=== PATIENT | female | born 1970 | race Caucasian/White ===

== ENCOUNTER → 2024-01-20 00:19 | Outpatient (CLI) | payer BC, SELFPAY ==
--- NOTE | 2024-01-20 | ETT_ITS ---
APPROVED REPORT Exam: Exercise Treadmill Patient Location: Out-Patient Room/Bed: Stress Nurse: Lizz Littlejohn RN Ordering Provider:Yanet Pearce Contact Number: [phone] BMI: 29.44 Baseline Rhythm: Sinus Rhythm Indications: Chest pain Medical History Medical History: HTN, HLD, hypothyroid, mild intermittent asthma, panic disorder with agoraphobia, PT SD, tobacco abuse, heart murmur, aortic stenosis Cardiac Medications: Lisinopril, aspirin, levothyroxine, rosuvastatin Allergies: Ciprofloxacin, dextromethorphan, sulfamethaoxazole Cardiac Risk Factors: Family hx, HTN, HLD, CVD, asthma, smoker Previous Cardiac Procedures: None Pretest Chest Pain Characteristics: None Exercise History: Physically active Physical Disabilities: None Lung Sounds: Clear to auscultation Heart Sounds: Regular Stress Test Details Test: Exercise stress testing was performed using a Benjamin protocol. Rest Stress HR Resting HR Supine: 62 bpm Max Heart Rate (APMHR): 165 bpm Resting HR Standin bpm Target HR (85% APMHR): 140 bpm Max HR Achieved: 118 bpm % of APMHR: 72 Recovery HR: 65 bpm HR response to stress: Blunted HR response to stress BP Resting BP Supine: 118/80 mmHg Resting BP Standin/70 mmHg Max BP: 164/82 mmHg Recovery BP: 102/70 mmHg BP response to stress: Normal blood pressure response to stress. ECG Resting ECG: Sinus Rhythm Ectopy: None Stress ECG: Sinus Tachycardia ST Change: Nondiagnostic low heart rate, Horizontal ST depression, Downsloping ST depression, Upslopi ng ST depression Lead(s): inferior leads, V6 Stage: [address] Deviation: 1-2 mm Arrhythmia: Occasional PAC's Recovery ECG: Sinus Rhythm Recovery ST Change: Nondiagnostic low heart rate, Horizontal ST depression, Downsloping ST depressio n, Upsloping ST depression Lead(s): Inferior Recovery Arrhythmia: Occasional PAC's Clinical Reason for Termination: Fatigue, Leg pain/Claudication, MOD SOB Stress Symptoms: General Fatigue, Leg Fatigue, mod SOB Exercise duration: 08 min39 sec Highest Stage Reached: Stage 3: 3.4 mph at 14% grade. Exercise capacity: 10.16 METs Angina Score: None Grover Treadmill Score: 5.0 Rate Pressure Product: [id number] Stress ECG Conclusion 1. Resting electrocardiogram was normal 2. Patient exercised on the Benjamin protocol, good exercise capacity of 10.16 METS 3. Normal blood pressure response to exercise. Peak heart rate achieved was 72% of maximal predicted for age 4. Electrocardiographic portion of the test was nondiagnostic due to inadequate heart rate 5. There were no significant dysrhythmias Grover Treadmill Score is 5.0 which is Low risk.
== END ==
PROVIDERS: PCP Family Medicine; Visit Provider Family Medicine
DX: I10 Essential (primary) hypertension (principal)
CPT/HCPCS: 93017

== ENCOUNTER 2024-02-06 10:00 | Outpatient (CLI) | payer BC, SELFPAY ==
--- NOTE | 2024-02-06 10:00 | RT.EKG_ITS ---
APPROVED REPORT Exam: Resting ECG Reason for Exam: chest pain Patient Location: O HR:63 bpm ECG Measurements Heart Rate 63 AXIS WI 145 P 45 QRSd 94 QRS 15 QT 403 T 17 QTc 413 Conclusion Sinus rhythm...normal P axis, V-rate 50- 99 Left atrial enlargement...P, P'>60mS, <-0.15mV V1
== END 2024-02-06 10:01 | disposition home or self-care (01) ==
LOC: DI.CARD 10:00
PROVIDERS: PCP Family Medicine; Visit Provider Internal Medicine Cardiovascular Disease
DX: R07.89 Other chest pain (principal); I70.90 Unspecified atherosclerosis; Q23.1 Congenital insufficiency of aortic valve; I65.22 Occlusion and stenosis of left carotid artery; I10 Essential (primary) hypertension; I51.7 Cardiomegaly
CPT/HCPCS: 93010

== ENCOUNTER 2024-08-03 00:39 | Outpatient (CLI) | payer BC, SELFPAY ==
--- NOTE | 2024-08-03 14:30 | DI.US_ITS ---
APPROVED REPORT EXAM: Comprehensive 2D, Doppler, and color-flow Echocardiogram Patient Location: Out-Patient Broadcasting Equipment Mechanic: Todd Mc RDCS (AE) Indications: Bicuspid aortic valve Conclusion Mild concentric left ventricular hypertrophy. Ejection fraction is 60%. Wall motion is normal Normal right ventricular size and function Both atria are normal in size Aortic valve is sclerotic. There is mild aortic regurgitation. There is mild aortic stenosis. Peak gradient is 28, mean 16 mmHg. Calculated aortic valve area is 1.5 cm. Mild mitral annular calcification Estimated right ventricular systolic pressure is 28 mmHg Mildly dilated ascending aorta Wall motion Left Ventricle The left ventricle is normal size. The left ventricular systolic function is normal. The left ventric ular ejection fraction is within the normal range. Mild concentric left ventricular hypertrophy. Ther e is normal LV segmental wall motion. There is no ventricular septal defect visualized. LVEF is 60%. Right Ventricle The right ventricle is normal size. The right ventricular systolic function is normal. The right vent ricular systolic function is normal. Atria The left atrium size is normal. The interatrial septum is intact with no evidence for an atrial septa l defect. Aortic Valve The aortic valve is sclerotic. Aortic valve is possibly bicuspid. Mild aortic stenosis. Peak aortic v alve gradient is 28.51 mmHg. Highest mean aortic valve gradient is 16.17 mmHg. Calculated NATHAN by the continuity equation is 1.6 cm2. Mild aortic regurgitation. Mitral Valve Mild mitral annular calcification. No evidence of mitral valve stenosis. There is no mitral valve reg urgitation noted. Tricuspid Valve The tricuspid valve is normal in structure. There is no tricuspid valve stenosis. Mild tricuspid regu rgitation. The RVSP is 28.1 mmHg. Pulmonic Valve The pulmonary valve is normal in structure. There is no pulmonic valvular stenosis. There is no pulmo akash valvular regurgitation. Great Vessels The aortic root is normal in size. The ascending aorta is mildly dilated. Aortic arch is normal in ca liber. IVC is normal in size and collapses >50% with inspiration. Pericardium There is no pericardial effusion. 2D Dimensions IVSD d PLAX 1.10 cm F: 0.6-1.0 Ao Root d 2.65 cm F: 2.7 - 3.3 LVPW d PLAX 1.09 cm F: 0.6 - 1.0 Ao Asc Diam d 3.47 cm F: 2.3 - 3.1 LVID d PLAX 4.81 cm F: 3.8 - 5.2 IVC Diam exp d SLAX 2.1 cm LVDs 3.26 cm F: 2.2 - 3.5 LV EF Teichholz 60.2 % FS 32.13 % LV EDV (Teich) 107.9 mL LV ESV (Teich) 42.9 mL Stroke Vol Index (Teich) 36.91 M-Mode TAPSE 2.39 cm (M/F) >1.7 Auto EF LV EDV A4C 108.4 mL LV EDV A2C 86.7 mL LV EDV BP 96.9 mL LV ESV A4C 46.8 mL LV ESV A2C 35.0 mL LV ESV BP 40.7 mL LVEF(%) A4C 56.8 % LVEF(%) A2C 59.6 % LVEF(%) BP 58.0 % LV SV A4C 61.6 ml LV SV A2C 51.7 ml LV SV BP 56.2 ml LV CO A4C 3.9 L/min LV CO A2C 3.1 L/min LV CO BP 3.5 L/min HR A4C 63.83 BPM HR A2C 60.81 BPM LV EDV Index (BP) LA Volume LA Length A4C 4.8 cm LA Length A2C 4.1 cm LA Area A4C s 14.43 cm2 LA Area A2C s 10.61 cm2 LA Vol A4C A-L 36.75 mL LA Vol A2C A-L 23.48 mL LA Vol Biplane A-L 32.0 mL LA Vol/BSA A4C A-L LA Vol/BSA A2C A-L LA Vol/BSA BP A-L 18.2 mL/m2 LA Vol A4C MOD 35.8 mL LA Vol A2C MOD 22.5 mL LA Vol BP MOD 30.5 mL RA Volume RA Area A4C 13.9 cm2 RA ESV A4C (A-L) 38.4mL RA Vol/BSA A4C A-L RA Length A4C 4.3 cm RA ESV A4C (MOD) 35.8mL LV Diastology MV E' medial 0.078 (>0.07 m/s) MV E Vmax 0.94 (0.4-1.3 m/s) MV E/E' MED 12.06 (<14) MV A Vmax 0.95 (0.4-1.3 m/s) MV E' lateral 0.087 (>0.1 m/s) E/A Ratio 1.0 MV E/E' LAT 10.82 (<14) MV E' Average 0.082 m/s MV E/E'(average) 11.41 Aortic Valve AoV Vmax 2.67 m/s LVOT Vmax 1.42 m/s AoV Peak Grad 35.0 mmHg LVOT Peak Grad 8.1 mmHg AoV Area (Vmax) 1.36 cm2 LVOT VTI 0.380 m AoV VTI 0.612 m LVOT Mean Grad 4.9 mmHg AoV Mean [place]. 1.89 m/s LVOT SV 96.94 mL AoV Mean Grad 16.2 mmHg LVOT Diam s 1.80 cm AoV Area (VTI) 1.58 cm2 AV Regurg Peak Gr. 28.51 mmHg Velocity Ratio 0.53 AR Decel [place] 1.6m/sec2 AR DT 2056 msec AR PHT 596 msec AR Vmax 3.22 m/s Mitral Valve MV DT 189 (160-240 msec) MV Vmax TIPS 1.16 m/s MV Mean Grad 1.8 (<2mmHg) MV VTI 0.399 m Pulmonary Valve PV Vmax 1.13 (0.5-1.5 m/s) RVOT Vmax 0.66 m/s PV Peak Grad 5.1 mmHg RVOT Peak Gr. 1.7 mmHg PV Mean [place] 0.73 m/s RVOT VTI 0.166 m PV Mean Grad 2.5 mmHg RVOT Mean Gr. 0.9 mmHg Tricuspid Valve RA Pressure 3.00 mmHg TR Vmax 2.51 m/s TR Peak Grad 25.1 mmHg RVSP (TR) 28.1 mmHg
== END 2024-08-03 00:59 ==
LOC: DI 00:39
PROVIDERS: PCP Family Medicine; Visit Provider Internal Medicine Cardiovascular Disease
DX: Q23.1 Congenital insufficiency of aortic valve (principal)
CPT/HCPCS: 93306